=== PATIENT | male | born 1995 | race Caucasian/White ===

== ENCOUNTER 2016-10-06 23:23 | Emergency (ER) | payer OTHER ==
[~2016-10-06] VITALS: Ht 175.3 cm; Wt 95.5 kg
[2016-10-06 23:30] VITALS: Ht 175.3 cm; Wt 95.5 kg
[2016-10-07] MEDS ORDERED: HYDROCODONE/APAP (5/325) TAB PO ONE (02:00)
--- NOTE | 2016-10-07 02:20 | RADRPT ---
PROCEDURE: XR Ankle. CLINICAL INDICATION: Right ankle pain. TECHNIQUE: Three views of the right ankle. COMPARISON: None available. FINDINGS: No fracture or dislocation is identified. The ankle mortise appears intact in this nonstressed stud y. The joint spaces are preserved. There is no significant soft tissue swelling. IMPRESSION: 1. No fracture or dislocation of the right ankle. RPTAT: HTAR .Justen Tate MD, MD Date Time Electronically viewed and signed by .Justen Tate MD, on 10/07/2016 02:19 .R/
--- NOTE | 2016-10-07 02:21 | RADRPT ---
PROCEDURE: XR Foot. CLINICAL INDICATION: Pain. TECHNIQUE: Three views of the right foot. COMPARISON: None available. FINDINGS: No fracture or dislocation is identified. The joint spaces are preserved. There is no significant soft tissue swelling. IMPRESSION: 1. No fracture or dislocation of the right foot. RPTAT: HTAR .Justen Tate MD, MD Date Time Electronically viewed and signed by .Justen Tate MD, on 10/07/2016 02:21 .R/
--- NOTE | 2016-10-07 02:28 | ERD ---
ER Documentation Chief Complaint Date/Time DATE: 10/07/16 TIME: 02:26 Chief Complaint right ankle pain, states hit ankle on a tire around 2200 at work HPI This a 20-year-old male who presents the emergency department today complaining of some right foot and ankle pain after falling off a "scooter". 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 States that the tire hit him on the ankle at work. Denies any previous trauma, fevers or chills. States he has pain with ambulation. ROS All systems reviewed and are negative except as per history of present illness. Allergies Allergies: Coded Allergies: No Known Drug Allergies (Verified Allergy, Unknown, 10/06/16) PMhx/Soc Medical and Surgical Hx: pt denies Medical Hx, pt denies Surgical Hx Hx Alcohol Use: Yes (SOCIAL) Hx Substance Use: No Hx Tobacco Use: No Smoking Status: Never smoker Physical Exam Vitals Vital Signs Date Time Temp Pulse Resp B/P Pulse Ox O2 Delivery O2 Flow Rate FiO2 10/06/16 23:30 98.6 65 20 145/85 99 Physical Exam Const: No acute distress Head: Atraumatic Eyes: Normal Conjunctiva ENT: Normal External Ears, Nose and Mouth. Neck: Full range of motion..~ No meningismus. Resp: Clear to auscultation bilaterally Cardio: Regular rate and rhythm, no murmurs Skin: No petechiae or rashes. Small abrasion over ankle MSK: Right ankle with no obvious deformity. Mild effusion over lateral aspect of ankle. Tenderness to palpation medial and lateral malleolus and diffusely over foot. Unable to assess range of motion secondary to pain. Pulses 2+. Distal neurovascularly intact. Neur: Awake and alert Psych: Normal Mood and Affect Results 24 hrs Current Medications Medications (Trade) Dose Ordered Sig/Manjit Route PRN Reason Start Time Stop Time Status Last Admin Dose Admin Acetaminophen/ Hydrocodone Bitart (Red Devil (5/325)) 1 tab ONCE ONCE PO 10/07/16 02:00 10/07/16 02:01 DC 10/07/16 02:13 DIAGNOSTIC IMAGING REPORT Patient: SKYLAR MCKENNA : 1995 Age: 20 Sex: M MR #: [id number] DOS: 07/01/17 0000 Ordering MD: MARTIN SULTANA PA-C Location: [facility] Room/Bed: PROCEDURE: XR Ankle. CLINICAL INDICATION: Right ankle pain. TECHNIQUE: Three views of the right ankle. COMPARISON: None available. FINDINGS: No fracture or dislocation is identified. The ankle mortise appears intact in this nonstressed study. The joint spaces are preserved. There is no significant soft tissue swelling. IMPRESSION: 1. No fracture or dislocation of the right ankle. RPTAT: HTAR .Justen Tate MD, Date Time Electronically viewed and signed by .Justen Tate MD, MD on 10/07/2016 02:19 .R/ CC: MARTIN SULTANA PA-C DIAGNOSTIC IMAGING REPORT Patient: SKYLAR MCKENNA : 1995 Age: 20 Sex: M MR #: [id number] DOS: 10/07/16 0000 Ordering MD: MARTIN SULTANA PA-C Location: [facility] Room/Bed: PROCEDURE: XR Foot. CLINICAL INDICATION: Pain. TECHNIQUE: Three views of the right foot. COMPARISON: None available. FINDINGS: No fracture or dislocation is identified. The joint spaces are preserved. There is no significant soft tissue swelling. IMPRESSION: 1. No fracture or dislocation of the right foot. RPTAT: HTAR .Justen Tate MD, MD Date Time Electronically viewed and signed by .Justen Tate MD, MD on 10/07/2016 02:21 .R/ CC: MARTIN SULTANA PA-C Procedures/[facility] This 20-year-old male who presents the emergency department today complaining of right ankle and foot pain after sustaining an injury at work in which he fell off the scooter and a tire hit him in the ankle. Given patient's trauma and evidence of swelling on physical exam and did obtain images. Per the radiology report images of the right foot and ankle show no fracture or dislocation. Joint spaces are preserved. There is no significant soft tissue swelling. Patient symptoms at this time is consistent with sprain versus strain versus contusion. Patient was given an Shun wrap and crutches to help ambulate. He was given one Red Devil here in the emergency department. I will give him prescription for Naprosyn and Tylenol for home At this time the patient is stable for discharge and outpatient management. Patient should follow up with their PCP in the next 1-2 days. They may return to the emergency department sooner for any persistent or worsening of symptoms. Patient understood and agreed with the plan. MARTIN SULTANA PA-C Oct 07, 2016 02:28
[2016-10-07] MEDS ORDERED: ACET500C5 PO (02:32)
[2016-10-07] MEDS ORDERED: NAPR-260 PO (02:32)
[2016-10-07 03:00] VITALS: BP 144/86; PULSE 76; RESP 16
== END 2016-10-07 03:01 | disposition home or self-care (01) ==
LOC: FTE 23:23
DX: S99.911A Unspecified injury of right ankle, initial encounter (principal); V00.831A Fall from motorized mobility scooter, initial encounter
CPT/HCPCS: 73630